=== PATIENT | female | born 1975 | race Caucasian/White ===

== ENCOUNTER 2019-06-27 18:12 | Emergency (ER) | payer OTHER ==
--- OUTSIDE RECORDS SUMMARY | 2019-06-27 18:17 | XMS REPORT | Continuity of Care Document ---
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 Medicine Problems Active Problems Provider Date Depressive disorder Kevin Powell NP Onset: 10/05/2016 Type 2 diabetes mellitus Kevin Powell NP Onset: 02/22/2018 Irritable bowel syndrome characterized by Laura Marcum NP Onset: 06/14/2018 alternating bowel habit Social History Type Date Description Comments Sex Unknown Tobacco Use Start: Unknown Never Smoked Cigarettes ETOH Use Drinks Alcoholic Beverages Occasionally Tobacco Use Start: Unknown Secondhand smoke As a child Recreational Drug Use Denies Drug Use Tobacco Use Start: Unknown Patient has never smoked Smoking Status Reviewed: 06/02/19 Patient has never smoked Exercise Type/Frequency Exercises sporadically Exercise Type/Frequency Physical therapy Exercise Type/Frequency Walks 5 times a week Allergies, Adverse Reactions, Alerts Active Allergies Reaction Severity Comments Date Hydrocodone Urticaria 01/24/2016 Adhesives Contact dermatitis 01/24/2016 Nickel Contact dermatitis 09/29/2016 Inactive Allergies NKDA 01/17/2016 Medications Active Medications SIG Qnty Indications Ordering Date Provider Trulicity inject 0.75mg 2units E11.9 Kevin Powell NP 06/02/2019 0.75mg/0.5ML (0.5ml) once Solution Pen-Inject weekly Pantoprazole Sodium take 1 tablet by 30tabs K21.9 Kevin Powell NP 2018 20mg mouth one time Tablets DR daily Famotidine take 1 tablet by 60tabs K21.9 Kevin Powell NP 06/02/2019 20mg Tablets mouth two times daily as needed Celebrex take one 30caps Donta Cait, 04/09/2019 200mg Capsules capsule/tablet M.D. daily by mouth as needed for pain, avoid ibuprofen and other nsaids Magnesium take one 60caps Donta Cait, 03/15/2019 500mg Capsules capsule/tablet M.D. daily by mouth Wrist Splint use nightly to 2units M06.4 Donta Chavira, 03/06/2019 [facility] [place] help with carpal M.D. tunnel features g56.01 Onetouch Ultra Blue Test twice a day 100units Kevin Powell NP 02/28/2019 Strips Venlafaxine HCL ER 1 by mouth every 90tabs Kevin Powell NP 02/28/2019 225mg day Tablets ER 24HR Onetouch Ultra 2 test blood sugar 1units E11.9 Kevin Powell NP 02/28/2019 w/Device 1-3 times daily Kit Metformin HCL take 1 tablets 120tabs E11.9 Kevin Powell NP 05/17/2018 500mg by mouth every Tablets morning and twop tablets every evening. Atorvastatin Calcium Take One Tablet 30tabs E78.5 Kevin Powell NP 2017 10mg By Mouth Daily Tablets AT Bedtime Calcium 600 + D 08/21/18 reports Kevin Powell NP 02/14/2018 not taking. 1 by [id number] Tablets mouth twice a day Levocetirizine 1 by mouth every 30tabs J30.89 Kevin Powell NP 01/25/2018 Dihydrochloride day 5mg Tablets Cyclobenzaprine HCL take 1 tablet by 60tabs M54.5 Kevin Powell NP 2017 10mg mouth three Tablets times a day if needed for Spasm Tramadol HCL 1-2 tablets 20tabs M54.5 Kevin Powell NP 05/15/2017 50mg Tablets every 8 hours as needed for pain. mdd 6 mdd 6 mdd 6 Vitamin B-12 1 by mouth twice 60tabs Kevin Powell NP 01/19/2017 500mcg a day Tablets Fluticasone Propionate 2 sprays each 48gm H81.12 Kevin Powell NP 10/12/2016 nostril qd. 50mcg/Act Suspension Ventolin HFA 2 puffs by mouth 8gm R06.02 Kevin Powell, GALA 09/29/2016 108(90Base) four times a day mcg/Act Aerosol as needed Super B-50 Complex 1 daily Unknown Capsules Hyoscyamine Sulfate ER 1 tab every 90tabs Laura Marcum, other day PHOTO FINISH PHOTOGRAPHER 0.375mg Tablets ER 12HR Multi Vitamin Daily 1 tab daily Unknown Tablets Slow-Mag Take 1 tabLET By 60tabs Kevin Powell, GALA 71.5-119mg Mouth twice Tablets DR daily Gabapentin take 2 caps bid Unknown 100mg Capsules Immunizations CPT Code Status Date Vaccine Reaction Lot # [id number] Given 08/21/2018 Pneumonia Vaccine No immediate [id number] reaction...[id number] Given 05/17/2018 Influenza Virus Vaccine, [id number] Quadrivalent, Split, Preservative Free Vital Signs Date Vital Result Comment 06/02/2019 2:47pm Height 64 inches 5'4" Weight 247.00 lb Heart Rate 94 /min BP Systolic Sitting 127 mmHg BP Diastolic Sitting 87 mmHg Body Temperature 98.6 F O2 % BldC Oximetry 95 % BMI (Body Mass Index) 42.4 kg/m2 04/09/2019 4:05pm Height 64 inches 5'4" Weight 245.50 lb Heart Rate 89 /min BP Systolic Sitting 132 mmHg BP Diastolic Sitting 80 mmHg Pain Level 3 O2 % BldC Oximetry 97 % BMI (Body Mass Index) 42.1 kg/m2 Results Test Acquired Date Facility Test Result H/L Range Note Comp Metabolic 05/30/2019 [facility] Sodium 137 mmol/L Normal 135-145 Panel [address] [place] [address] [phone] Potassium 4.5 mmol/L Normal 3.5-5.0 Chloride 101 mmol/L Normal 101-111 Co2 Carbon Dioxide 26 mmol/L Normal 22-32 Anion Gap 10 mmol/L Normal 2-11 Glucose 150 mg/dL High 70-100 Blood Urea Nitrogen 16 mg/dL Normal 6-24 Creatinine 0.64 mg/dL Normal 0.51-0.95 BUN/Creatinine Ratio 25.0 High 8-20 Calcium 9.6 mg/dL Normal 8.6-10.3 Total Protein 7.2 g/dL Normal 6.4-8.9 Albumin 4.0 g/dL Normal 3.2-5.2 Globulin 3.2 g/dL Normal 2-4 Albumin/Globulin Ratio 1.3 Normal 1-3 Total Bilirubin 0.30 mg/dL Normal 0.2-1.0 Alkaline Phosphatase 127 U/L High 34-104 Alt 39 U/L Normal 7-52 Ast 34 U/L Normal 13-39 Egfr Non- 101.3 >60 Egfr 122.5 >60 1 Lipid Profile 05/30/2019 [facility] Triglycerides 370 mg/dL 2 (Trig/Chol/HDL) [facility] [place] [address] [phone] Cholesterol 172 mg/dL 3 HDL Cholesterol 34.2 mg/dL 4 LDL Cholesterol 64 mg/dL 5 Laboratory test 05/30/2019 [facility] Hemoglobin A1c 7.9 % High 4.0-5.6 6 finding [facility] (Glyco HGB) [place] [address] [phone] Urine 05/30/2019 [facility] Ur Microalbumin < 15.0 Microalbumin [facility] (mg/L) mg/[place] [address] [phone] Urine Creatinine 84.75 mg/dL Urine Microalbumin/Creatinine TNP <31 7 Laboratory test 05/30/2019 [facility] Magnesium 1.9 mg/dL Normal 1.9-2.7 [place] [address] [phone] Ferritin 58.7 ng/mL Normal 11-307 Laboratory test 04/17/2019 [facility] Magnesium 2.0 mg/dL Normal 1.9-2.7 [place] [address] [phone] Ferritin 77.5 ng/mL Normal 11-307 Mitochondrial AB AMA M2 Igg <0.1 U 8 Myomarker Panel 3 04/17/2019 [facility] Anti-Archana-1 Ab < 20 units <20 Puls [address] [place] [address] [phone] PL-[address]-12 Negative Negative Ej Negative Negative Oj Negative Negative SRP Negative Negative NV-2 Negative Negative Fibrillarin (U3 CHILD CARE SITTER) Negative Negative Mda-5 (P140)(Cadm-140) < 20 units <20 NXP-2 (P140) < 20 units <20 Tif1 Gamma (P155/140) < 20 units <20 Anti-PM/Scl-100 Ab < 20 units <20 U2 snRNP Negative Negative Ku Negative Negative Anti-SS-A 52 kD Ab, IgG < 20 units <20 9 Anti-Lul 1, IgG < 20 units <20 10 Anti-U1-CHILD CARE SITTER Ab < 20 units <20 Laboratory test 03/06/2019 [facility] Uric Acid 6.6 mg/dL Normal 2.3-6.[address] [place] [address] [phone] Free Cortisol Serum 0.100 g/dL Abnormal 11 Pthi 03/06/2019 [facility] PTH Intact 45.6 pg/mL Normal 12-[address] [place] [address] [phone] Calcium (PTH Intact) 9.7 mg/dL Normal 8.6-10.3 Alkaline Phos 03/06/2019 [facility] Alkaline 144 U/L Abnormal 35 - Isoenzymes [address] Phosphatase [address] [place] [address] [phone] Alp Liver 1% 72.1 % 27.8-76.3 Alp Liver 1 103.8 IU/L Abnormal 16.2-70.2 Alp Liver 2% 4.1 % 0.0-8.0 Alp Liver 2 5.9 IU/L Abnormal 0.0-5.8 Alp Bone % 22.0 % 19.1-67.7 Alp Bone 31.7 IU/L 12.1-42.7 Alp Intestine % 1.8 % 0.0-20.6 Alp Intestine 2.6 IU/L 0.0-11.0 Alp Placental NotPresent 12 Protein 03/06/2019 [facility] Total 7.3 g/dL 6.3 - Electrophoresis [address] Protein(Pep) 7.9 [place] [address] [phone] Albumin 3.3 g/dL Abnormal 3.4-4.7 Alpha-1 Globulin 0.3 g/dL 0.1-0.3 Alpha-2 Globulin 1.1 g/dL Abnormal 0.6-1.0 Beta Globulin 1.3 g/dL Abnormal 0.7-1.2 Gamma Globulin 1.3 g/dL 0.6-1.6 Albumin/Globulin Ratio 0.84 Impression See Comment 13 Laboratory test 03/06/2019 [facility] Creatine 422 U/L High 10 -[address] Kinase(CK) [place] [address] [phone] TSH (Thyroid Stim Horm) 2.03 mcIU/mL Normal 0.34-5.60 Vitamin B12 03/06/2019 [facility] Vitamin B12 698 pg/mL Normal 180-914 [address] [place] [address] [phone] Folic Acid (Folate) > 20.00 ng/mL >3.99 Laboratory test 03/06/2019 [facility] Thyroperoxidase AB 0.51 Normal <[address] IU/mL [place], [place] [address] [phone] Ssa/SSB Abs Igg 03/06/2019 [facility] SS-A/Ro Antibody <0.[address] [place] [address] [phone] SS-B/La Antibody <0.2 U 16 Laboratory test 03/06/2019 [facility] Magnesium 1.8 mg/dL Low 1.9-2.[address] [place], [place] [address] [phone] Anca AB Ser If 03/06/2019 [facility] C-Anca Negative Negative DRIVE [place], [place] [address] [phone] P-Anca Negative Negative 17 Laboratory test 03/06/2019 [facility] Erythrocyte Sed 22 mm/Hr High 0-[address] [place] [address] [phone] C Reactive Protein 13.45 mg/L High <8.01 Laboratory test 02/24/2019 [facility] Hemoglobin A1c 7.1 % High 4.0-5.[address] (Glyco HGB) [place] [address] [phone] Laboratory test 12/31/2018 [facility] Cytology SEE RESULT [address] [place] [address] [phone] 1 Because ethnic data is not always readily available, this report includes an eGFR for both -Americans and non- Americans. The National Kidney Disease Education Program (NKDEP) does not endorse the use of the MDRD equation for patients that are not between the ages of 18 and 70, are , have extremes of body size, muscle mass, or nutritional status, or are non- or non-. According to the National Kidney Foundation, irrespective of diagnosis, the stage of the disease is based on the level of kidney function: Stage Description GFR(mL/min/1.73 m(2)) 1 Kidney damage with normal or decreased GFR 90 2 Kidney damage with mild decrease in GFR 60-89 3 Moderate decrease in GFR 30-59 4 Severe decrease in GFR 15-29 5 Kidney failure <15 (or dialysis) 2 Desirable: <150 Borderline High: 150-199 High: 200-499 Very High: >500 3 Desirable: <200 Borderline High: 200-239 High: >239 4 Low: <40 Desirable: 40-60 High: >60 5 Desirable: <100 Near Optimal: 100-129 Borderline High: 130-159 High: 160-189 Very High: >189 6 Therapeutic target for the treatment of diabetes mellitus patients is <7% HBA1C, and in selective patients <6.0%. Please refer to [employer] Diabetes Association diabetic care guidelines for further information. 7 Unable to calculate due to low microalbumin 8 REFERENCE VALUE <0.1 (Negative) Test Performed by: [address] [address] Public Services Assistant: Dorina Dunlap M.D. Ph.D.; CLIA# [id number] 9 ADDITIONAL INFORMATION EIA Interpretation: Negative <20 Units Weak Positive 20-39 Units Moderate Positive 40-80 Units Strong Positive >80 Units This panel was developed and its performance characteristics validated by [facility]. There is no FDA approved assay for the above tests. As a lab developed test (LDT), approval or clearance by the FDA is not required. This test may be used for clinical purposes and should not be regarded as investigational or for research. 10 ADDITIONAL INFORMATION EIA Interpretation: Negative <20 Units Weak Positive 20-39 Units Moderate Positive 40-80 Units Strong Positive >80 Units This panel was developed and its performance characteristics validated by [facility]. There is no FDA approved assay for the above tests. As a lab developed test (LDT), approval or clearance by the FDA is not required. This test may be used for clinical purposes and should not be regarded as investigational or for research. Test Performed by: [facility] [address] [facility] [place] [address] 11 REFERENCE VALUE 6:00-10:30 AM Collection 0.121-1.065 mcg/dL ADDITIONAL INFORMATION This test was developed and its performance characteristics determined by [facility] in a manner consistent with CLIA requirements. This test has not been cleared or approved by the U.S. Food and Drug Administration. Test Performed by: [place] [address] Public Services Assistant: Dorian Dunlap M.D. Ph.D.; CLIA# [id number] 12 REFERENCE VALUE Not present Test Performed by: [facility] - [address] [address] Public Services Assistant: Dorian Dunlap M.D. Ph.D.; CLIA# [id number] 13 RESULT: No apparent monoclonal protein on serum electrophoresis. Test Performed by: [address] [address] Public Services Assistant: Dorian Dunlap M.D. Ph.D.; CLIA# [id number] 14 Normal Range 180 to 914 Indeterminate Range 145 to 180 Deficient Range <145 15 REFERENCE VALUE <1.0 (Negative) 16 REFERENCE VALUE <1.0 (Negative) Test Performed by: [facility] [place] [address] 17 Negative for cANCA and pANCA patterns by immunofluorescence. ADDITIONAL INFORMATION This test was developed and its performance characteristics determined by [facility] in a manner consistent with CLIA requirements. This test has not been cleared or approved by the U.S. Food and Drug Administration. Test Performed by: [facility] [place] [address] Public Services Assistant: Dorian Dunlap M.D. Ph.D.; CLIA# [id number] 18 Therapeutic target for the treatment of diabetes mellitus patients is <7% HBA1C, and in selective patients <6.0%. Please refer to [employer] Diabetes Association diabetic care guidelines for further information. 19 SEE RESULT BELOW Name: LATONIA BARONE : [address]: Jessica Steiner Acct: [id number] Unit: [id number] AGE: 43 Location: [facility] Re12/31/18 SEX: F Status: REG REF SPEC: [id number] [place]: 12/31/18-[address]: Jessica Steiner REQ: [id number] RECD: 01/01/19 STATUS: MICHAEL NDIAYE DR: Katelynn Milligan MD _ ORDERED: TP IMAGE ANALYS, HPV/Thin Prep COMMENTS: [id number] Negative for Intraepithelial lesion or Malignancy Date Time Test Result Flag (u) Normal Range 12/31/18 1529 HPV RNA Negative Negative The high-risk HPV types detected by the assay include: 16, 18, 31, 33, 35, 39, 45, 51, 52, 56, 58, 59, 66, and 68. A. Ectocervical/Endocervical Specimen Adequacy: Satisfactory of evaluation Transformation zone component not identified Patient Information: HPV: High risk HPV RNA testing regardless of pap results. Actual Specimen Date: 01/01/19 Last Menstrual Date: 10/14/18 Date of Last Specimen: 11/01/16 Signed by and Reported on: HUNTER Reese(ASCP) 1527 This Pap test was evaluated with the assistance of the hField TechnologiesPrep Test Imaging System. Due to cytologic findings at the design engineering specialist microscope, comprehensive manual rescreening by a Electronic Components Assembler may be required. The Pap Smear is a screening test designed to aid in the detection of premalignant and malignant conditions of the uterine cervix. It is not a diagnostic procedure and should not be used as the sole means of detecting cervical cancer. Both false- positive and false- negative reports do occur. Depending on your risk status, a Pap smear should be obtained and evaluated every 1-3 years. END OF REPORT DEPARTMENT OF PATHOLOGY, [address] [place] [address] Efren Wiggins M.D. Director [facility] # [id number] Procedures Date Code Description Status 11/11/2018 758167883 Diabetic Retinal Eye Exam Completed 12/17/2017 [id number] Mammogram Completed 04/27/2009 [id number] Colonoscopy Completed Medical Devices Description No Information Available Encounters Type Date Location Provider Dx Diagnosis Office Visit 04/09/2019 Rheumatology Donta Chavira, M06.4 Inflammatory 4:[facility] polyarthropathy E83.42 Hypomagnesemia M54.2 Cervicalgia R74.8 Abnormal levels of other serum enzymes E27.8 Other specified disorders of adrenal gland Office Visit 03/06/2019 Rheumatology Donta R70.0 Elevated 3:[facility] Chavira M.D. erythrocyte sedimentation rate M06.4 Inflammatory polyarthropathy E83.42 Hypomagnesemia M35.01 Sicca syndrome with keratoconjunctivitis M54.2 Cervicalgia M54.6 Pain in thoracic spine R20.8 Other disturbances of skin sensation R74.8 Abnormal levels of other serum enzymes Office Visit 02/28/2019 3:40p Nursing Home Social Worker Internal Kevin Sherry, E11.9 Type 2 diabetes Medicine - [facility] PHOTO FINISH PHOTOGRAPHER mellitus without complications F33.0 Major depressive disorder, recurrent, mild H65.02 Acute serous otitis media, left ear Assessments Date Code Description Provider 06/02/2019 E11.9 Type 2 diabetes mellitus without complications Kevin Powell NP 06/02/2019 F33.0 Major depressive disorder, recurrent, mild Kevin Powell NP 06/02/2019 Z23 Encounter for immunization Kevin Powell NP 06/02/2019 K21.9 Gastro-esophageal reflux disease without Kevin Powell NP esophagitis 04/09/2019 M06.4 Inflammatory polyarthropathy Donta Chavira M.D. 04/09/2019 E83.42 Hypomagnesemia Donta Chavira M.D. 04/09/2019 M54.2 Cervicalgia Donta Chavira M.D. 04/09/2019 R74.8 Abnormal levels of other serum enzymes Donta Chavira M.D. 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 03/06/2019 R70.0 Elevated erythrocyte sedimentation rate Donta Chavira M.D. 03/06/2019 M06.4 Inflammatory polyarthropathy Donta Chavira M.D. 03/06/2019 E83.42 Hypomagnesemia Donta Chavira M.D. 03/06/2019 M35.01 Sicca syndrome with keratoconjunctivitis Donta Chavira M.D. 03/06/2019 M54.2 Cervicalgia Donta Chavira M.D. 03/06/2019 M54.6 Pain in thoracic spine Donta Chavira M.D. 03/06/2019 R20.8 Other disturbances of skin sensation Donta Chavira M.D. 03/06/2019 R74.8 Abnormal levels of other serum enzymes Donta Chavira M.D. 02/28/2019 E11.9 Type 2 diabetes mellitus without complications Kevin Powell NP 02/28/2019 F33.0 Major depressive disorder, recurrent, mild Kevin Powell NP 02/28/2019 H65.02 Acute serous otitis media, left ear Kevin Powell NP Plan of Treatment Future Appointment(s):09/03/2019 1:40 pm - [facility] at [facility] - Everett Chester MD at [place] [facility]06/10/2019 8:00 am - Donta Chavira M.D. at [facility]06/02/2019 - Kevni Powell NPE11.9 Type 2 diabetes mellitus without complicationsNew Medication:Trulicity 0.75 mg/0.5ML - inject 0.75mg ( 0.5ml) once weeklyComments:Your A1c is 7.9% This is too high. It is important to try to reduce eating the sweets. Continue taking the 1,000mg metformin twice daily.Start taking the Trulicity once weekly.Follow up:3 months, 20 minRecommendations:See your engineering geologist every year. It is OK to go every 2 years if he finds no retinal damage from diabetes. Ask your engineering geologist to communicate his findings to us. See a hand bootmaker every 6 months if you have numbness in your feet or a history of foot ulcers.F33.0 Major depressive disorder, recurrent, mildComments:Continue on the current dose of venlafaxine.If you would like to consider adding the Wellbutrin we discussed let me know.Z23 Encounter for hiqtqfpzbdtbU72.9 Gastro-esophageal reflux disease without esophagitisNew Medication:Pantoprazole Sodium 20 mg - take 1 tablet by mouth one time dailyFamotidine 20 mg - take 1 tablet by mouth two times daily as neededComments:Lifestyle modification is important in acid reflux. Continue to avoid eating within 3-4 hours of bed, elevate the head of you bed, try to limit caffeine and alcohol, and any foods identified as triggers. Please let me know if symptoms do not improve or worsen. Start taking the pantoprazole daily. Youcan use the famotidine up to twice daily if you are still having reflux. Goals 06/02/2019 - Kevin Powell NPE11.9 Type 2 diabetes mellitus without complicationsGoal Hemoglobin A1c is less than 7.0%. Goal Blood pressure is less than 130/85. Functional Status Description No Information Available Mental Status Description No Information Available Referrals Refer to Reason for Referral Status Appt Date Everett Chester MD Please evaluate for causes of low cortisol in Closed 2018 patient with fatigue [address] [place] [address] [phone]
--- OUTSIDE RECORDS SUMMARY | 2019-06-27 18:17 | XMS REPORT | Continuity of Care Document ---
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 Medicine Problems Active Problems Provider Date Depressive [...] Patient has never smoked Smoking Status Reviewed: 06/19/19 Patient has never smoked Exercise Type/Frequency Exercises sporadically Exercise Type/Frequency Walks 5 times a week pt aims for 8000 steps per day Allergies, Adverse Reactions, Alerts Active Allergies Reaction Severity Comments Date Hydrocodone Urticaria 01/24/2016 Adhesives Contact dermatitis 01/24/2016 Nickel Contact dermatitis 09/29/2016 Inactive Allergies NKDA 01/17/2016 Medications Active Medications SIG Qnty Indications Ordering Date Provider Cosyntropin 250mcg 1unlee Chester, 06/19/2019 0.25mg intramuscular once MD Solution Rec in office Celecoxib Take 1 Capsule By lenny Chavira, 06/14/2019 200mg Mouth Daily If M.D. Capsules Needed For PainAvoid Ibuprofen And Other NSAIDS. Trulicity inject 0.75mg 2units E11.9 Kevin Powell NP 06/02/2019 0.75mg/0.5ML (0.5ml) once weekly Solution Pen-Inject Pantoprazole Sodium take 1 tablet by 30tabs K21.9 Kevin Powell NP 2018 mouth one time 20mg Tablets DR daily Famotidine take 1 tablet by 60tabs K21.9 Kevin Powell NP 06/02/2019 20mg Tablets mouth two times daily as needed Magnesium take one 60caps Donta Chavira, 03/15/2019 500mg capsule/tablet M.D. Capsules daily by mouth Wrist Splint use nightly to help 2units M06.4 Donta Chavira, 03/06/2019 Misc with carpal tunnel M.D. features g56.01 Onetouch Ultra Blue Test twice a day 100units Kevin Powell NP 02/28/2019 Strips Venlafaxine HCL ER 1 by mouth every 90tabs Kevin Powell NP 02/28/2019 day 225mg Tablets ER 24HR Onetouch Ultra 2 test blood sugar 1units E11.9 Kevin Powell NP 02/28/2019 1-3 times daily w/Device Kit Metformin HCL Take 1 Tablet By 60tabs E11.9 Kevin Powell NP 05/17/2018 500mg Mouth Twice Daily Tablets Atorvastatin Calcium Take One Tablet By 30tabs E78.5 Kevin Powell NP 2017 Mouth Daily AT 10mg Tablets Bedtime Calcium 600 + D 08/21/18 reports not Kevin Powell NP 02/14/2018 taking. 1 by mouth [id number] twice a day Tablets Cyclobenzaprine HCL take 1 tablet by 60tabs M54.5 Kevin Powell NP 2017 mouth three times a 10mg Tablets day if needed for Spasm Tramadol HCL 1-2 tablets every 8 20tabs M54.5 Kevin Powell NP 05/15/2017 50mg hours as needed for Tablets pain. mdd 6 mdd 6 mdd 6 Vitamin B-12 1 by mouth twice a 60tabs Kevin Powell NP 01/19/2017 500mcg day Tablets Fluticasone 2 sprays each 48gm H81.12 Kevin Powell NP 10/12/2016 Propionate nostril qd. 50mcg/Act Suspension Ventolin HFA 2 puffs by mouth 8gm R06.02 Kevin Powell NP 09/29/2016 four times a day as 108(90Base) mcg/Act needed Aerosol Super B-50 Complex 1 daily Unknown Capsules Hyoscyamine Sulfate 1 tab every other 90tabs Laura Marcum, ER day CERAMIC WORKER 0.375mg Tablets ER 12HR Multi Vitamin Daily 1 tab daily Unknown Tablets Gabapentin take 2 caps bid Unknown 100mg Capsules History Medications Celebrex take one capsule/tablet 30caps Donta Chavira, 04/09/2019 - 200mg daily by mouth as M.D. 06/14/2019 Capsules needed for pain, avoid ibuprofen and other nsaids Immunizations CPT Code Status Date Vaccine Reaction Lot # [id number] Given 06/02/2019 Influenza Virus Vaccine, No immediate reaction [id number] Quadrivalent ([id number]), Derived From Cell [id number] Given 08/21/2018 Pneumonia Vaccine No immediate [id number] reaction...[id number] Given 05/17/2018 Influenza Virus Vaccine, [id number] Quadrivalent, Split, Preservative Free Vital Signs Date Vital Result Comment 06/19/2019 2:14pm Height 64 inches 5'4" Weight 246.00 lb w/ shoes Heart Rate 110 /min BP Systolic Sitting 135 mmHg BP Diastolic Sitting 81 mmHg BMI (Body Mass Index) 42.2 kg/m2 06/10/2019 7:56am Height 64 inches 5'4" Weight 248.25 lb Heart Rate 97 /min BP Systolic Sitting 122 mmHg BP Diastolic Sitting 80 mmHg Pain Level 2 O2 % BldC Oximetry 98 % BMI (Body Mass Index) 42.6 kg/m2 Results Test Acquired Date Facility Test Result H/L Range Note Comp Metabolic 05/30/2019 [facility] Sodium 137 mmol/L Normal 135-[address] [place] [address] [phone] Potassium 4.5 mmol/L Normal 3.5-5.0 Chloride 101 [...] Egfr 122.5 >60 1 Lipid Profile 05/30/2019 [facility] Triglycerides 370 mg/dL 2 (Trig/Chol/HDL) [address] [place] [address] [phone] Cholesterol 172 mg/dL 3 HDL Cholesterol 34.2 mg/dL 4 LDL Cholesterol 64 mg/dL 5 Laboratory test 05/30/2019 [facility] Hemoglobin A1c 7.9 % High 4.0-5.6 6 finding [address] [facility] (Glyco HGB) [place] [address] [phone] Urine 05/30/2019 [facility] Ur Microalbumin < 15.[address] (mg/L) mg/[place] [address] [phone] Urine Creatinine 84.75 mg/dL Urine Microalbumin/Creatinine TNP <31 7 Laboratory test 05/30/2019 [facility] Magnesium 1.9 mg/dL Normal 1.9-2.[address] [place] [address] [phone] Ferritin 58.7 ng/mL Normal 11-307 Mitochondrial AB AMA M2 Igg <0.1 U 8 Myomarker Panel 3 05/30/2019 [facility] Anti-Archana-1 Ab < 20 units <[address] [place] [address] [phone] PL-[address]-12 Negative Negative Ej Negative Negative Oj Negative Negative SRP Negative Negative VA-2 Negative Negative Fibrillarin (U3 INJECTION MOLD TECHNICIAN) Negative Negative Mda-5 (P140)(Cadm-140) < 20 units <20 NXP-2 (P140) < 20 units <20 Tif1 Gamma (P155/140) < 20 units <20 Anti-PM/Scl-100 Ab < 20 units <20 U2 snRNP Negative Negative Ku Negative Negative Anti-SS-A 52 kD Ab, IgG < 20 units <20 9 Anti-Lul 1, IgG < 20 units <20 10 Anti-U1-INJECTION MOLD TECHNICIAN Ab < 20 units <20 Laboratory test 04/17/2019 [facility] Magnesium 2.0 mg/dL Normal 1.9-2.[address] [place] [address] [phone] Ferritin 77.5 ng/mL Normal 11-307 Mitochondrial AB AMA M2 Igg <0.1 U 11 Myomarker Panel 3 04/17/2019 [facility] Anti-Archana-1 Ab < 20 units <[address] [place] [address] [phone] PL-[address]-12 Negative Negative Ej Negative Negative Oj Negative Negative SRP Negative Negative VA-2 Negative Negative Fibrillarin (U3 INJECTION MOLD TECHNICIAN) Negative Negative Mda-5 (P140)(Cadm-140) < 20 units <20 NXP-2 (P140) < 20 units <20 Tif1 Gamma (P155/140) < 20 units <20 Anti-PM/Scl-100 Ab < 20 units <20 U2 snRNP Negative Negative Ku Negative Negative Anti-SS-A 52 kD Ab, IgG < 20 units <20 12 Anti-Lul 1, IgG < 20 units <20 13 Anti-U1-INJECTION MOLD TECHNICIAN Ab < 20 units <20 Laboratory test 03/06/2019 [facility] Uric Acid 6.6 mg/dL Normal 2.3-6.[address] [place] [address] [phone] Free Cortisol Serum 0.100 g/dL Abnormal 14 Pthi 03/06/2019 [facility] PTH Intact 45.6 pg/mL Normal 12-[address] [place] [address] [phone] Calcium (PTH Intact) 9.7 mg/dL Normal 8.6-10.3 Alkaline Phos 03/06/2019 [facility] Alkaline 144 U/L Abnormal 35 - Isoenzymes [address] Phosphatase [address] [place] [address] [phone] Alp Liver 1% 72.1 % 27.8-76.3 Alp Liver 1 103.8 IU/L Abnormal 16.2-70.2 Alp Liver 2% 4.1 % 0.0-8.0 Alp Liver 2 5.9 IU/L Abnormal 0.0-5.8 Alp Bone % 22.0 % 19.1-67.7 Alp Bone 31.7 IU/L 12.1-42.7 Alp Intestine % 1.8 % 0.0-20.6 Alp Intestine 2.6 IU/L 0.0-11.0 Alp Placental NotPresent 15 Protein 03/06/2019 [facility] Total 7.3 g/dL 6.3 - Electrophoresis [address] Protein(Pep) 7.9 [place] [address] [phone] Albumin 3.3 g/dL Abnormal 3.4-4.7 Alpha-1 Globulin 0.3 g/dL 0.1-0.3 Alpha-2 Globulin 1.1 g/dL Abnormal 0.6-1.0 Beta Globulin 1.3 g/dL Abnormal 0.7-1.2 Gamma Globulin 1.3 g/dL 0.6-1.6 Albumin/Globulin Ratio 0.84 Impression See Comment 16 Laboratory test 03/06/2019 [facility] Creatine 422 U/L High 10 -[address] Kinase(CK) [place] [address] [phone] TSH (Thyroid Stim Horm) 2.03 mcIU/mL Normal 0.34-5.60 Vitamin B12 03/06/2019 [facility] Vitamin B12 698 pg/mL Normal 180-[address] [place] [address] [phone] Folic Acid (Folate) > 20.00 ng/mL >3.99 Laboratory test 03/06/2019 [facility] Thyroperoxidase AB 0.51 Normal <[address] IU/[place] [address] [phone] Ssa/SSB Abs Igg 03/06/2019 [facility] SS-A/Ro Antibody <0.[address] [place] [address] [phone] SS-B/La Antibody <0.2 U 19 Laboratory test 03/06/2019 [facility] Magnesium 1.8 mg/dL Low 1.9-2.[address] [place] [address] [phone] Anca AB Ser If 03/06/2019 [facility] C-Anca Negative Negative [address] [place] [address] [phone] P-Anca Negative Negative 20 Laboratory test 03/06/2019 [facility] Erythrocyte Sed 22 mm/Hr High 0-[address] [place] [address] [phone] C Reactive Protein 13.45 mg/L High <8.01 Laboratory test 02/24/2019 [facility] Hemoglobin A1c 7.1 % High 4.0-5.[address] (Glyco HGB) [place] [address] [phone] Laboratory test 12/31/2018 [facility] Cytology SEE RESULT [address] [place] [address] [phone] 1 Because ethnic data is not always [...] in selective patients <6.0%. Please refer to [employer] diabetic care guidelines for further information. 7 Unable to calculate due to low microalbumin 8 REFERENCE VALUE <0.1 (Negative) Test Performed by: [facility] [place] [address] Airline Dispatcher: Dorian Dunlap M.D. Ph.D.; CLIA# [id number] 9 ADDITIONAL INFORMATION EIA Interpretation: Negative <20 Units Weak Positive 20-39 Units Moderate Positive 40-80 Units Strong Positive >80 Units This panel was developed and its performance characteristics validated by RD. There is no FDA approved assay for [...] developed and its performance characteristics validated by RD. There is no FDA approved assay for the above tests. As a lab developed test (LDT), approval or clearance by the FDA is not required. This test may be used for clinical purposes and should not be regarded as investigational or for research. Test Performed by: [facility] [address] [facility] [place] [address] 11 REFERENCE VALUE <0.1 (Negative) Test Performed by: [facility] [place] [address] Airline Dispatcher: Dorian Dunlap M.D. Ph.D.; CLIA# [id number] 12 ADDITIONAL INFORMATION EIA Interpretation: Negative <20 Units Weak Positive 20-39 Units Moderate Positive 40-80 Units Strong Positive >80 Units This panel was developed and its performance characteristics validated by RD. There is no FDA approved assay for the above tests. As a lab developed test (LDT), approval or clearance by the FDA is not required. This test may be used for clinical purposes and should not be regarded as investigational or for research. 13 ADDITIONAL INFORMATION EIA Interpretation: Negative <20 Units Weak Positive 20-39 Units Moderate Positive 40-80 Units Strong Positive >80 Units This panel was developed and its performance characteristics validated by RD. There is no FDA approved assay for the above tests. As a lab developed test (LDT), approval or clearance by the FDA is not required. This test may be used for clinical purposes and should not be regarded as investigational or for research. Test Performed by: [facility] [address] [facility] [place] [address] 14 REFERENCE VALUE 6:00-10:30 AM Collection 0.121-1.065 mcg/dL ADDITIONAL INFORMATION This test was developed and its performance characteristics determined by [facility] in a manner consistent with CLIA requirements. This test has not been cleared or approved by the U.S. Food and Drug Administration. Test Performed by: [facility] - [address] [address] Airline Dispatcher: Dorian Dunlap M.D. Ph.D.; CLIA# [id number] 15 REFERENCE VALUE Not present Test Performed by: [facility] [place] [id number] Airline Dispatcher: Dorian Dunlap M.D. Ph.D.; CLIA# [id number] 16 RESULT: No apparent monoclonal protein on serum electrophoresis. Test Performed by: [facility] [place] [address] Airline Dispatcher: Dorian Dunlap M.D. Ph.D.; CLIA# [id number] 17 Normal Range 180 to 914 Indeterminate Range 145 to 180 Deficient Range <145 18 REFERENCE VALUE <1.0 (Negative) 19 REFERENCE VALUE <1.0 (Negative) Test Performed by: [facility] [place] [address] 20 Negative for cANCA and pANCA patterns by immunofluorescence. ADDITIONAL INFORMATION This test was developed and its performance characteristics determined by [facility] in a manner consistent with CLIA requirements. This test has not been cleared or approved by the U.S. Food and Drug Administration. Test Performed by: [facility] [place] [address] Airline Dispatcher: Dorian Dunlap M.D. Ph.D.; CLIA# [id number] 21 Therapeutic target for the treatment of diabetes mellitus patients is <7% HBA1C, and in selective patients <6.0%. Please refer to [employer] diabetic care guidelines for further information. 22 SEE RESULT BELOW Name: LATONIA BARONE : [address]: Jessica Steiner Acct: [id number] Unit: [id number] AGE: 43 Location: [facility] Re12/31/18 SEX: F Status: REG REF SPEC: [id number] [place]: 12/31/18-[address]: Jessica Steiner REQ: [id number] RECD: 01/01/19-121 STATUS: MICHAEL NDIAYE DR: Katelynn Milligan MD _ ORDERED: TP IMAGE ANALYS, HPV/Thin Prep COMMENTS: [id number] Negative for Intraepithelial lesion or Malignancy Date [...] was evaluated with the assistance of the SanradPrep Test Imaging System. Due to cytologic findings at the fishing captain microscope, comprehensive manual rescreening by a Top Cutter may be required. The Pap Smear is [...] years. END OF REPORT DEPARTMENT OF PATHOLOGY, [address] [place] [address] Efren Wiggins M.D. Director [facility] # [id number] Procedures Date Code Description Status 02/05/2019 [id number] Mammogram Completed 11/11/2018 [id number] Diabetic Retinal Eye Exam Completed 12/17/2017 [id number] Mammogram Completed 04/27/2009 [id number] Colonoscopy Completed Medical Devices Description No Information Available Encounters Type Date Location Provider Dx Diagnosis Office Visit 06/10/2019 Rheumatology Donta Chavira, M06.4 Inflammatory 8:00a [facility] polyarthropathy R74.8 Abnormal levels of other serum enzymes Z79.899 Other fci (current) drug therapy R79.82 Elevated C-reactive protein (CRP) Office Visit 06/02/2019 2:40p [facility] Internal Kevin Powell, E11.65 Type 2 diabetes Medicine - CERAMIC WORKER mellitus with Ccmob hyperglycemia F33.0 Major depressive disorder, recurrent, mild Z23 Encounter for immunization K21.9 Gastro-esophageal reflux disease without esophagitis Office Visit 04/09/2019 Rheumatology Donta M06.4 Inflammatory 4:00p [facility] Chavira M.D. polyarthropathy E83.42 Hypomagnesemia M54.2 Cervicalgia R74.8 Abnormal [...] other serum enzymes Office Visit 02/28/2019 3:40p [facility] Internal Kevin Powell, E11.9 Type 2 diabetes Medicine - Ccmob CERAMIC WORKER mellitus without complications F33.0 Major depressive disorder, recurrent, mild H65.02 Acute serous otitis media, left ear Assessments Date Code Description Provider 06/19/2019 R53.82 Chronic fatigue, unspecified Everett Chester MD 06/19/2019 E11.65 Type 2 diabetes mellitus with hyperglycemia Everett Chester MD 06/10/2019 M06.4 Inflammatory polyarthropathy Donta Chavira M.D. 06/10/2019 R74.8 Abnormal levels of other serum enzymes Donta Chavira M.D. 06/10/2019 Z79.899 Other tank terminal gauger (current) drug therapy Donta Chavira M.D. 06/10/2019 R79.82 Elevated C-reactive protein (CRP) Donta Chavira M.D. 06/02/2019 E11.65 Type 2 diabetes mellitus with hyperglycemia Kevin Powell NP 06/02/2019 F33.0 Major depressive [...] Kevin Powell NP Plan of Treatment Future Appointment(s):07/10/2019 8:00 am - Nurse Visit [facility] at [facility]12/10/2019 8:20 am - Donta Chavira M.D. at [facility]09/03/2019 1:40 pm - Kevin Powell NP at [facility] Everett Chester, MDR53.82 Chronic fatigue, unspecifiedNew Labs:Cortisol, Ordered: 06/19/19Instructions:1. Return for fasting blood tests an ACTH (Consyntropin) injection. 2. We will send your results to you by mail.E11.65 Type 2 diabetes mellitus with hyperglycemia Functional Status Description No Information Available Mental Status Description No Information Available Referrals Refer to Reason for Referral Status Appt Everett Chester MD Please evaluate for causes of low cortisol in Closed 2018 patient with fatigue [address] [place] [address] [phone]
--- OUTSIDE RECORDS SUMMARY | 2019-06-27 18:17 | XMS REPORT | Continuity of Care Document ---
:1975 External Reference #:[id number] Author Name Donta Chavira M.D. 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 tunnel features g56.01 [...] Powell NP 02/14/2018 not taking. 1 by [id number] Tablets mouth twice a day Levocetirizine 1 [...] tab every 90tabs Laura Marcum, other day [employer]IATE 0.375mg Tablets ER 12HR Multi Vitamin Daily 1 tab daily Unknown Tablets Slow-Mag Take 1 tabLET By 60tabs Kevin Powell NP 71.5-119mg Mouth twice Tablets DR daily Gabapentin take 2 caps bid Unknown 100mg Capsules Immunizations CPT Code Status Date Vaccine Reaction Lot # [id number] Given 06/02/2019 Influenza Virus Vaccine, No immediate reaction [id number] Quadrivalent ([id number]), Derived From Cell 30940 Given 08/21/2018 Pneumonia Vaccine No immediate [id number] reaction...jh [id number] Given 05/17/2018 Influenza Virus Vaccine, [id number] Quadrivalent, Split, Preservative Free Vital Signs Date Vital Result Comment 06/10/2019 7:56am Height 64 inches 5'4" Weight 248.25 lb Heart Rate 97 /min BP Systolic Sitting 122 mmHg BP Diastolic Sitting 80 mmHg Pain Level 2 O2 % BldC Oximetry 98 % BMI (Body Mass Index) 42.6 kg/m2 06/02/2019 2:47pm Height 64 inches 5'4" Weight 247.00 lb Heart Rate 94 /min BP Systolic Sitting 127 mmHg BP Diastolic Sitting 87 mmHg Body Temperature 98.6 F O2 % BldC Oximetry 95 % BMI (Body Mass Index) 42.4 kg/m2 Results Test Acquired Date Facility Test Result H/L Range Note Comp Metabolic 05/30/2019 [facility] Sodium 137 mmol/L Normal 135-[address] [place] [address] [phone] Potassium 4.5 mmol/L Normal 3.5-5.0 Chloride 101 [...] Egfr 122.5 >60 1 Lipid Profile 05/30/2019 [facility] Triglycerides 370 mg/dL 2 (Trig/Chol/HDL) [place] [address] [phone] Cholesterol 172 mg/dL 3 HDL Cholesterol 34.2 mg/dL 4 LDL Cholesterol 64 mg/dL 5 Laboratory test 05/30/2019 [facility] Hemoglobin A1c 7.9 % High 4.0-5.6 6 finding (Glyco HGB) [place] [address] [phone] Urine 05/30/2019 [facility] Ur Microalbumin < 15.0 Microalbumin (mg/L) mg/[place] [address] [phone] Urine Creatinine 84.75 mg/dL Urine Microalbumin/Creatinine TNP <31 7 Laboratory test 05/30/2019 [facility] Magnesium 1.9 mg/dL Normal 1.9-2.7 [place] [address] [phone] Ferritin 58.7 ng/mL Normal 11-307 Laboratory test 04/17/2019 [facility] Magnesium 2.0 mg/dL Normal 1.9-2.7 [place] [address] [phone] Ferritin 77.5 ng/mL Normal 11-307 Mitochondrial AB AMA M2 Igg <0.1 U 8 Myomarker Panel 3 04/17/2019 [facility] Anti-Archana-1 Ab < 20 units <20 Puls [address] [place] [address] [phone] PL-[address]-12 Negative Negative Ej Negative Negative Oj Negative Negative SRP Negative Negative SD-2 Negative Negative Fibrillarin (U3 MECHANICAL ARTIST) Negative Negative Mda-5 (P140)(Cadm-140) < 20 units <20 NXP-2 (P140) < 20 units <20 Tif1 Gamma (P155/140) < 20 units <20 Anti-PM/Scl-100 Ab < 20 units <20 U2 snRNP Negative Negative Ku Negative Negative Anti-SS-A 52 kD Ab, IgG < 20 units <20 9 Anti-Lul 1, IgG < 20 units <20 10 Anti-U1-MECHANICAL ARTIST Ab < 20 units <20 Laboratory test 03/06/2019 [facility] Uric Acid 6.6 mg/dL Normal 2.3-6.[address] [place] [address] [phone] Free Cortisol Serum 0.100 g/dL Abnormal 11 Pthi 03/06/2019 [facility] PTH Intact 45.6 pg/mL Normal 12-[address] [place] [address] [phone] Calcium (PTH Intact) 9.7 mg/dL Normal 8.6-10.3 Alkaline Phos 03/06/2019 [facility] Alkaline 144 U/L Abnormal 35 - Isoenzymes [address] Phosphatase [address] [place] [address] [phone] Alp Liver 1% 72.1 % 27.8-76.3 Alp Liver 1 103.8 IU/L Abnormal 16.2-70.2 Alp Liver 2% 4.1 % 0.0-8.0 Alp Liver 2 5.9 IU/L Abnormal 0.0-5.8 Alp Bone % 22.0 % 19.1-67.7 Alp Bone 31.7 IU/L 12.1-42.7 Alp Intestine % 1.8 % 0.0-20.6 Alp Intestine 2.6 IU/L 0.0-11.0 Alp Placental NotPresent 12 Protein 03/06/2019 [facility] Total 7.3 g/dL 6.3 - Electrophoresis [address] Protein(Pep) 7.9 [place] [address] [phone] Albumin 3.3 g/dL Abnormal 3.4-4.7 Alpha-1 Globulin 0.3 g/dL 0.1-0.3 Alpha-2 Globulin 1.1 g/dL Abnormal 0.6-1.0 Beta Globulin 1.3 g/dL Abnormal 0.7-1.2 Gamma Globulin 1.3 g/dL 0.6-1.6 Albumin/Globulin Ratio 0.84 Impression See Comment 13 Laboratory test 03/06/2019 [facility] Creatine 422 U/L High 10 -223 finding [address] Kinase(CK) [place] [address] [phone] TSH (Thyroid Stim Horm) 2.03 mcIU/mL Normal 0.34-5.60 Vitamin B12 03/06/2019 [facility] Vitamin B12 698 pg/mL Normal 180-914 14 [place] [address] [phone] Folic Acid (Folate) > 20.00 ng/mL >3.99 Laboratory test 03/06/2019 [facility] Thyroperoxidase AB 0.51 Normal <[address] IU/mL [place], [place] [address] [phone] Ssa/SSB Abs Igg 03/06/2019 [facility] SS-A/Ro Antibody <0.[address] [place] [address] [phone] SS-B/La Antibody <0.2 U 16 Laboratory test 03/06/2019 [facility] Magnesium 1.8 mg/dL Low 1.9-2.[address] [place], [place] [address] [phone] Anca AB Ser If 03/06/2019 [facility] C-Anca Negative Negative DRIVE [place], [place] [address] [phone] P-Anca Negative Negative 17 Laboratory test 03/06/2019 [facility] Erythrocyte Sed 22 mm/Hr High 0-[address] [place] [address] [phone] C Reactive Protein 13.45 mg/L High <8.01 Laboratory test 02/24/2019 [facility] Hemoglobin A1c 7.1 % High 4.0-5.[address] (Glyco HGB) [place] [address] [phone] Laboratory test 12/31/2018 [facility] Cytology SEE RESULT [address] [place], [place] [id number] [phone] 1 Because ethnic data is not always [...] in selective patients <6.0%. Please refer to [place] [employer] diabetic care guidelines for further information. 7 Unable to calculate due to low microalbumin 8 REFERENCE VALUE <0.1 (Negative) Test Performed by: [facility] [address] [place] [address] Pelletising Extruder Operator: Dorian Dunlap M.D. Ph.D.; CLIA# [id number] ADDITIONAL INFORMATION EIA Interpretation: Negative <20 Units Weak Positive 20-39 Units Moderate Positive 40-80 Units Strong Positive >80 Units This panel was developed and its performance characteristics validated by [facility]. There is no FDA approved assay for [...] developed and its performance characteristics validated by [facility]. There is no FDA approved assay for the above tests. As a lab developed test (LDT), approval or clearance by the FDA is not required. This test may be used for clinical purposes and should not be regarded as investigational or for research. Test Performed by: [facility] [address] [place] [address] 11 REFERENCE VALUE 6:00-10:30 AM Collection 0.121-1.065 mcg/dL ADDITIONAL INFORMATION This test was developed and its performance characteristics determined by [facility] in a manner consistent with CLIA requirements. This test has not been cleared or approved by the U.S. Food and Drug Administration. Test Performed by: [facility] [address] [place] [address] Pelletising Extruder Operator: Dorian Dunlap M.D. Ph.D.; CLIA# [id number] REFERENCE VALUE Not present Test Performed by: [facility] [address] [place] [address] Pelletising Extruder Operator: Dorian Dunlap M.D. Ph.D.; CLIA# [id number] 13 RESULT: No apparent monoclonal protein on serum electrophoresis. Test Performed by: [facility] [address] Pelletising Extruder Operator: Dorian Dunlap M.D. Ph.D.; CLIA# [id number] 14 Normal Range 180 to 914 Indeterminate Range 145 to 180 Deficient Range <145 15 REFERENCE VALUE <1.0 (Negative) 16 REFERENCE VALUE <1.0 (Negative) Test Performed by: [facility] [address] 17 Negative for cANCA and pANCA patterns by immunofluorescence. ADDITIONAL INFORMATION This test was developed and its performance characteristics determined by [facility] in a manner consistent with CLIA requirements. This test has not been cleared or approved by the U.S. Food and Drug Administration. Test Performed by: [facility] [address] Pelletising Extruder Operator: Dorian Dunlap M.D. Ph.D.; CLIA# [id number] 18 Therapeutic target for the treatment of diabetes mellitus patients is <7% HBA1C, and in selective patients <6.0%. Please refer to [place] [employer] diabetic care guidelines for further information. 19 SEE RESULT BELOW Name: LATONIA BARONE : [address]: Jessica Steiner Acct: [id number] Unit: [id number] AGE: 43 Location: [facility] Re12/31/18 SEX: F Status: REG REF SPEC: [id number] [place]: 12/31/[address] [facility] [address]: Jessica Steiner REQ: [id number] RECD: 01/01/19 STATUS: MICHAEL NDIAYE DR: Katelynn Milligan MD _ ORDERED: TP IMAGE ANALYS, HPV/Thin Prep COMMENTS: [id number] Negative for Intraepithelial lesion or Malignancy Date [...] was evaluated with the assistance of the Simpli.fiPrep Test Imaging System. Due to cytologic findings at the zanjero microscope, comprehensive manual rescreening by a Non Clinical Advisor may be required. The Pap Smear is [...] years. END OF REPORT DEPARTMENT OF PATHOLOGY, [address] [place] [address] Efren Wiggins M.D. Director [facility] # [id number] Procedures Date Code Description Status 11/11/2018 [id number] Diabetic Retinal Eye Exam Completed 12/17/2017 [id number] Mammogram Completed 04/27/2009 [id number] Colonoscopy Completed Medical Devices Description No Information [...] other serum enzymes Office Visit 02/28/2019 3:40p Educational Technology Specialist Internal Kevin Powell, E11.9 Type 2 diabetes Medicine - [facility] [employer]OCIATE mellitus without complications F33.0 Major depressive disorder, recurrent, mild H65.02 Acute serous otitis media, left ear Assessments Date Code Description Provider 06/10/2019 M06.4 Inflammatory polyarthropathy Donta Chavira M.D. 06/10/2019 R74.8 Abnormal levels of other serum enzymes Donta Chavira M.D. 06/10/2019 Z79.899 Other residential (current) drug therapy Donta Chavira M.D. 06/10/2019 R79.82 Elevated C-reactive protein (CRP) Donta Chavira M.D. 06/02/2019 E11.9 Type 2 diabetes mellitus without [...] Kevin Powell NP Plan of Treatment Future Appointment(s):12/10/2019 8:20 am - Donta Chavira M.D. at [facility]09/03/2019 1:40 pm - [facility] Powell [facility] - Everett Chester MD at [facility]06/10/2019 - Donta Chavira M.D.M06.4 Inflammatory dhxytqnxbrxxbynV47.8 Abnormal levels of other serum uadbenvY68.899 Other weight control lecturer (current) drug xgswqelG30.82 Elevated C-reactive protein (CRP)Follow up:Follow up in 6 months or sooner if needed Functional Status Description No Information Available Mental Status Description No Information Available Referrals Refer to Reason for Referral Status Appt Everett Chester MD Please evaluate for causes of low cortisol in Closed 2018 patient with fatigue [address] [place] [address] [phone]
[2019-06-27 18:53] VITALS: BP 143/93
--- NOTE | 2019-06-27 18:58 | UC ---
Throat Pain/Nasal Ilan HPI - HPI Summary HPI Summary: 43 yo female presents with cold symptoms. She tells me that for the last week she has had sinus pain/pressure/congestion and a runny nose. Over the last 3-4 days has had a sore throat and post nasal drip. Last night felt that she had a fever as she felt hot/cold all night. She has been taking OTC cold medicine with little relief. Denies cough, rash, abdominal pain, n/v - History of Current Complaint Chief Complaint: UCRespiratory Stated Complaint: sore throat Time Seen by Provider: 06/27/19 18:58 Hx Obtained From: Patient Hx Last Menstrual Period: last week Onset/Duration: Gradual Onset Severity: Moderate Pain Intensity: 7 Pain Scale Used: 0-10 Numeric - Allergies/Home Medications Allergies/Adverse Reactions: Allergies Allergy/AdvReac Type Severity Reaction Status Date / Time adhesive Allergy Rash Verified 04/17/19 15:19 nickel Allergy Unknown Verified 04/17/19 15:19 Reaction Details oxycodone Allergy Itching Verified 04/17/19 15:19 Home Medications: Home Medications Dulaglutide [Trulicity] 0.75 mg SQ WEEKLY 06/27/19 [History Confirmed 06/27/19] PMH/Surg Hx/FS Hx/Imm Hx Endocrine History: Diabetes, Dyslipidemia Cardiovascular History: Hypertension Respiratory History: Asthma - Surgical History Surgical History: Yes Surgery Procedure, Year, and Place: GALLBLADDER. D&C - Family History Known Family History: Positive: Respiratory Disease - Asthma Negative: Cardiac Disease - Social History Lives: With Family Alcohol Use: Occasionally Substance Use Type: None Smoking Status (MU): Never Smoked Tobacco Household Exposure Type: Cigarettes - Immunization History Most Recent Influenza Vaccination: NOT THIS YEAR Review of Systems All Other Systems Reviewed And Are Negative: No Constitutional: Positive: Negative Skin: Positive: Negative Eyes: Positive: Negative ENT: Positive: Sore Throat, Nasal Discharge, Sinus Congestion, Sinus Pain/ Tenderness Respiratory: Positive: Negative Cardiovascular: Positive: Negative Gastrointestinal: Positive: Negative Neurological: Positive: Negative Psychological: Positive: Negative Physical Exam - Summary Physical Exam Summary: GENERAL: NAD. WDWN. No pain distress. SKIN: No rashes, sores, lesions, or open wounds. HEENT: Head: AT/NC Eyes: Conjunctiva clear without inflammation or discharge. Ears: Hearing grossly normal. TMs intact, no bulging, erythema, or edema. Nose: Nasal mucosa pink and moist. NTTP maxillary and frontal sinus. Throat: Posterior oropharynx mild erythema. No tonsillar enlargement. No exudates. Uvula midline. No hoarse voice or muffled voice. NECK: Supple. Mild anterior cervical LAD NTTP. CHEST: CTAB. No r/r/w. No accessory muscle use. Breathing comfortably and in no distress. CV: RRR.. Pulses intact. Cap refill <2seconds NEURO: Alert. PSYCH: Age appropriate behavior. Triage Information Reviewed: Yes Vital Signs: Initial Vital Signs Temp 97.0 F 06/27/19 18:49 Pulse 93 06/27/19 18:49 Resp 18 06/27/19 18:49 BP 143/93 06/27/19 18:49 Pulse Ox 96 06/27/19 18:49 Laboratory Tests 06/27/19 18:58 Group A Strep Rapid Negative Vital Signs Reviewed: Yes Throat Pain/Nasal Course/Dx - Course Course Of Treatment: POC strep negative. Discussed viral vs bacterial causes with the pt and she prefers to be on anbx at this time given her diabetes and immunocompromised family members that she intends to spend the holiday with - Differential Dx/Diagnosis Provider Diagnosis: Pharyngitis Discharge ED - Sign-Out/Discharge Documenting (check all that apply): Patient Departure All imaging exams completed and their final reports reviewed: No Studies - Discharge Plan Condition: Stable Disposition: HOME Prescriptions: Amoxicillin PO (*) [Amoxicillin 875 MG (*)] 875 mg PO BID #14 tab Patient Education Materials: Pharyngitis (ED) Referrals: Kevin Powell NP [Primary Care Provider] - Additional Instructions: If you develop a fever, shortness of breath, chest pain, new or worsening symptoms - please call your PCP or go to the ED immediately. Your blood pressure was high at todays visit. Please see your primary provider within 4 weeks for recheck and re-evaluation. - Billing Disposition and Condition Condition: STABLE Disposition: Home - Attestation Statements Provider Attestation: Per institutional requirements, I have reviewed the chart, however, I was not consulted specifically or made aware of this patient by the midlevel provider. I did not personally evaluate, interact with , or disposition this patient.
== END 2019-06-27 19:15 | disposition home or self-care (01) ==
LOC: UCEAST 18:12
DX: J02.9 Acute pharyngitis, unspecified (principal); R09.81 Nasal congestion; E11.9 Type 2 diabetes mellitus without complications; I10 Essential (primary) hypertension; J45.909 Unspecified asthma, uncomplicated; R09.89 Other specified symptoms and signs involving the circulatory and respiratory systems; Z91.09 Other allergy status, other than to drugs and biological substances; Z88.5 Allergy status to narcotic agent
CPT/HCPCS: 87651; 99212; G0463